=== PATIENT | male | born 1970 | race Caucasian/White ===

== ENCOUNTER 2017-02-08 21:07 | Observation (INO) ==
[2017-02-09] MEDS ORDERED: Naloxone 0.4 MG/ML INJ IVP PRN (01:57)
[2017-02-09] MEDS ORDERED: Acetaminophen 325 MG TABLET PO PRN (01:57)
[2017-02-09] MEDS ORDERED: Ipratropium/Albuterol Neb 3 ML IH PRN (02:02)
[2017-02-09] MEDS ORDERED: Magnesium Sulfate 2 GM in D5% in Water 100 ML IVPB ONE (02:03)
[2017-02-09] MEDS ORDERED: *HR* OxyCODONE/APAP 5/325 TABLET PO PRN (02:06)
[2017-02-09] MEDS: methylPREDNISolone 125 MG/2 ML VIAL IVP SCH ×4 (02:33→19:20)
--- NOTE | 2017-02-09 03:13 | Internal Med History&Physical ---
Date of Encounter: 02/09/17 Time of Encounter: 02:00 Assessment and Plan (1) Asthma with exacerbation Current visit: No Status: Acute Patient has history of asthma. With worsening shortness of breath. Consider asthma exacerbation. - We will continue Solu-Medrol 60 mg IV every 6 hours. - Continue bronchodilator scheduled and when necessary. - Continue supportive treatment with oxygen. BiPAP as needed. - We will give patient magnesium sulfate 2 g IV once. - Continue closely monitor patient with SPO2 and cardiac monitoring. Qualifiers: Asthma severity: mild intermittent Qualified Code(s): J45.21 - Mild intermittent asthma with (acute) exacerbation (2) Bronchitis Current visit: Yes Status: Acute Patient has cough with sputum. Chest x-ray shows no pneumonia. Consider bronchitis. - We will treat patient with cough syrup. - Patient has leukocytosis, possibly due to steroid use. (3) DVT prophylaxis Current visit: Yes Status: Acute Heparin subcutaneously Internal Medicine - H&P: HPI Chief complaint: Shortness of breath Admitted From: Home Plans for Post Hospital Care: Home History of present illness: Mr. Weems is a 46 year old male with history of asthma presents to [place] the emergency room for worsening shortness of breath for 2 days. Patient said he has a history of asthma, on albuterol and Symbicort, but he does not take Symbicort regularly. His asthma attack is about once every 2 months. He had pulmonary function test and was confirmed the diagnosis of asthma. He has never been hospitalized for asthma attack. 2 days ago, he started has shortness of breath, with cough and greenish sputum. He went to urgent care and was given "steroid shot" there. He was sent to [place] the emergency room and was placed on BiPAP there. After treatment, his condition has improved. He was transferred to our hospital for further management. I discussed the CODE STATUS with the patient. He is a full code. Past Med Surg Social Fam HX - Past Medical History Medical history: asthma Psychiatric history: no psych history - Social History Smoking Status: Never smoker Smokeless Tobacco Status: No Alcohol use: occasionally Drug use: none Internal Medicine - H&P: Meds Albuterol Sulfate 2.5 mg IH PRN PRN 02/08/17 [History] Albuterol Sulfate [Proair Hfa] 1 puff IH 2-4XD 02/08/17 [History] Levofloxacin [Levaquin] 500 mg PO DAILY 02/08/17 [History] MethylPREDNISolone [MethylPREDNISolone Dose Pack] 4 mg PO DAILY 02/08/17 [ History] Allergies Penicillins Allergy (Verified 02/08/17 20:27) Rash All Systems PM: A 10-system review of systems was performed and is negative for pertinent findings except as documented above in the HPI. - Constitutional Vitals: Pulse Pulse Ox 104 96 02/09/17 02:00 02/09/17 02:46 General appearance: Present: A&O X 3, severe distress (Still in moderate-to- severe respiratory distress when I see him.), answers questions appropriately - Head Head exam: Present: atraumatic, normocephalic - Eye Eye exam: Present: PERRL, conjuntiva pink, sclera anicteric Pupils: Present: PERRL - Neck Neck exam general surgery: Present: supple, trachea midline. Absent: lymphadenopathy - Respiratory Respiratory exam: Present: CTAB, wheezes (Scattered wheezes bilaterally). Absent: accessory muscle use, rales, rhonchi - Cardiovascular Cardiovascular exam: Present: RRR, +S1, +S2. Absent: diastolic murmur, gallop, rubs, systolic murmur - GI/Abdominal GI/Abdominal exam: Present: normal bowel sounds, soft, no peritoneal signs. Absent: distended, tenderness - Extremities Exam Extremities exam: Present: warm, radial pulses palpable and symetrical. Absent : calf tenderness, cyanotic, pedal edema - Neurological Exam Neurological exam: Present: CN II-XII intact, oriented X3, no focal deficits. Absent: pronater drift, facial droop, speech deficit - Skin Skin exam: Present: dry, intact Internal Med - H&P Results - ABG Interpretation Interpretation: ABG interpreted by me Interpretation: respiratory acidosis
[2017-02-09] MEDS: Ipratropium/Albuterol Neb 3 ML IH SCH ×5 (04:16→20:36)
[2017-02-09 04:25] LABS: ABG Base Excess -1.6 mEq/L (-2.0 to 3.0); ABG HCO3 24.3 mEQ/L (21-27); ABG Oxygen Saturation 97 % (95-98); ABG PCO2 44 mmHg (35-45); ABG PH 7.35 pH Units (7.32-7.45); ABG PO2 97 mmHg (85-104); ABG TCO2 25.7 mEq/L (20-26)
[2017-02-09 04:26] LABS: Blood Gas FiO2 36 %
[2017-02-09 05:00] LABS: Basophils % 0.3 %; Eosinophils % 0.2 %; Hematocrit 52.4 % (37.5-50.1); Hemoglobin 17.7 g/dL (12.9-16.9); Immature Granulocytes % 0.7 % (0-4); Lymphocytes # 0.7 K/mcL (0.6-4.6); Lymphocytes % 6.2 %; Mean Corpuscular HGB Conc 33.8 g/dL (31.6-35.5); Mean Corpuscular Hemoglobin 30.9 pg (28.0-33.3); Mean Corpuscular Volume 91.6 fL (83.0-100.0); Mean Platelet Volume 9.3 fL (9.4-12.4); Monocytes # 0.2 K/mcL (0.0-1.3); Monocytes % 1.4 %; Neutrophils # 10.8 K/mcL (1.6-8.9); Platelet Count 321 K/mcL (140-400); Red Blood Count 5.72 M/mcL (4.19-5.50); Red Cell Distribution Width 13.5 % (11.5-14.5); Segmented Neutrophils % 91.2 %
[2017-02-09 05:19] LABS: BUN/Creatinine Ratio 13 (6-26); Blood Urea Nitrogen 14 mg/dL (8-26); Calcium 9.8 mg/dL (8.6-10.8); Carbon Dioxide 25 mEq/L (19-29); Chloride 105 mEq/L (98-109); Glucose 176 mg/dL (70-99); Magnesium 2.8 mg/dL (1.6-2.6); Osmolality,Calculated 293 (280-300); Potassium 4.4 mEq/L (3.5-4.5); Sodium 139 mEq/L (136-145); eGFR For African Americans > 60 (> 60); eGFR For Non-African Americans > 60 (> 60)
[2017-02-09] MEDS: *HR* Heparin 5,000 UNIT/ML VIAL SQ SCH ×2 (06:16→17:44)
[2017-02-09] MEDS ORDERED: Albuterol 2.5 MG/3 ML NEBULIZER IH PRN (07:31)
[2017-02-10] MEDS: Ipratropium/Albuterol Neb 3 ML IH SCH ×3 (00:11→08:03)
[2017-02-10] MEDS: methylPREDNISolone 125 MG/2 ML VIAL IVP SCH ×2 (03:36→08:39)
[2017-02-10] MEDS: *HR* Heparin 5,000 UNIT/ML VIAL SQ SCH (06:05)
[2017-02-10 07:24] VITALS: BP 119/76
--- NOTE | 2017-02-10 09:33 | Discharge Summary ---
Date of Encounter: 02/10/17 Time of Encounter: 09:33 - Discharge Diagnosis (1) Asthma with exacerbation Priority: Primary Status: Acute Qualifiers: Asthma severity: mild intermittent Qualified Code(s): J45.21 - Mild intermittent asthma with (acute) exacerbation - Discharge Medications Prescriptions: Albuterol Neb [Proventil Neb] 2.5 mg IH QID #120 vial.neb Budesonide/Formoterol 160/4.5 [Symbicort 160/4.5] 2 puff IH BIDR #2 hfa.aer.ad predniSONE [PredniSONE] 60 mg PO DAILY #12 tablet Home Medications: MethylPREDNISolone [MethylPREDNISolone Dose Pack] 4 mg PO DAILY 02/08/17 [ History] Budesonide/Formoterol 160/4.5 [Symbicort 160/4.5] 2 puff IH BIDR 02/09/17 [ History] Ibuprofen [Motrin] 400 mg PO Q6HR PRN 02/09/17 [History] Albuterol Neb [Proventil Neb] 2.5 mg IH Q2H PRN #0 inhsol 02/10/17 [Rx] Albuterol Neb [Proventil Neb] 2.5 mg IH QID #120 vial.neb 02/10/17 [Rx] Albuterol Sulfate 2.5 mg IH QID #0 02/10/17 [Rx] Albuterol Sulfate [Proair Hfa] 1 puff IH PRN PRN #0 02/10/17 [Rx] Budesonide/Formoterol 160/4.5 [Symbicort 160/4.5] 2 puff IH BIDR #2 hfa.aer.ad 02/10/17 [Rx] predniSONE [PredniSONE] 60 mg PO DAILY #12 tablet 02/10/17 [Rx] Allergies/Adverse Reactions: Allergies Penicillins Allergy (Verified 02/08/17 20:27) Rash Date of admission: 02/09/17 01:00 Primary care physician: PCP NO - Patient Status Disposition: Home, Self-Care Condition: Good Functional capacity at discharge: independent ambulation Overall status at discharge: patient is progressing back to baseline - Discharge Instructions Instructions: Prednisone (By mouth), Asthma (DC), Cigarette Smoking and Your Health, [employer] (GEN) Follow Up With: Alma Conley MD [Partnered Physician] - 02/26/17 10:30 am NO,PCP [Primary Care Provider] - 02/18/17 10:20 am ([facility] 291) [phone] [place] [address] ) Additional Instructions: TAKE ALL YOU MEDICATIONS PRESCRIBED EVEN IF YOU START FEELING BETTER. TAKE PREDNISONE 60 MG DAILY FOR 4 DAYS (FIRST DOSE February 11), then on February 15 start taking methylpredisolone dose-pack per package instructions. FOLLOW UP WITH YOUR PRIMARY CARE DOCTOR NEXT WEEK AND IN THE PULMONOLOGY CLINIC IN 1-2 WEEKS. HAVE YOUR PCP CHECK YOUR BLOOD GLUCOSE (DUE TO STEROIDS). IF YOU BECOME SHORT OF BREATH, STOP AND REST. TAKE NICE SLOW BREATHS IN THROUGH YOUR NOSE AND OUT THROUGH YOUR MOUTH. RETURN TO WORK WHEN CLEARED BY YOUR PHYSICIAN. REGULAR DIET. ACTIVITY INDEPENDENT AND TOLERATED. - Diet and Activity Activity: return to work once cleared by your PCP/specialist Diet: regular diet Interval History: patient feels much better compared to admission, he is breathing room air and has no issues. Hospital course: Mr. Weems is a 46 year old male with history of asthma who presents with shortness of breath for 2 days. Patient admits not taking his prescribed Symbicort regularly. His asthma attack is about once every 2 months. He had pulmonary function test and was confirmed the diagnosis of asthma. He has never been hospitalized for asthma attack. He was admitted with diagnosis of acute respiratory failure with hypoxia secondary to asthma exacerbation and was started on IV solumedrol, nebulizations and mucinex with clinical improvement. He was ambulating on room air the day of discharge. PLAN: follow up in the pulmonology clinic in 1-2 weeks. patient instructed to take medications as prescribed. He verbalized understanding and agreed with the plan. All questions answered. - Time Spent with Patient Total time spent providing and/or coordinating discharge services: - Constitutional Vitals: Temp Pulse Resp BP Pulse Ox 98.0 F 94 16 119/76 93 02/10/17 07:22 02/10/17 08:40 02/10/17 08:05 02/10/17 07:22 02/10/17 08:40 General appearance: Present: cooperative, A&O X 3, pleasant, no acute distress, answers questions appropriately - Neck Neck exam general surgery: Present: supple, trachea midline. Absent: lymphadenopathy - Respiratory Additional comments: improved air entry bilaterally, diffuse mild wheezes - Cardiovascular Cardiovascular exam: Present: RRR - GI/Abdominal GI/Abdominal exam: Present: normal bowel sounds, soft. Absent: distended, tenderness - Extremities Exam Extremities exam: Absent: pedal edema - Back Exam Back exam: Absent: CVA tenderness (L), CVA tenderness (R) - Neurological Exam Neurological exam: Present: alert, oriented X3, no focal deficits, strengths equal and symetr throughout. Absent: facial droop, speech deficit - Skin Skin exam: Absent: rash
== END 2017-02-10 11:40 | disposition home or self-care (01) ==
LOC: 2NNU → SUATTDRO 02-09 01:00
PROVIDERS: ADMIT Internal Medicine; ATTEND Internal Medicine